=== PATIENT | female | born 1955 | race Caucasian/White ===

== ENCOUNTER 2023-07-12 08:29 | Emergency (ER) | payer MEDICARE, SELFPAY ==
[2023-07-12] VITALS (9 sets, daily range): BP systolic 144–192; BP diastolic 84–92; PULSE 77–90; RESP 17–26; TEMP 36.9–37.2; O2SAT 94–98; BMI 30.2
--- NOTE | 2023-07-12 08:45 | XR_ITS ---
The [address] [address] Patient Name: TRINY CHEEMA MRN: [id number] date: 1955 Sex: F Assigned Patient Location: ER Current Patient Location: ER Accession/Order Number: [id number] Exam Date: 07/12/2023 09:03 Report Date: 07/12/2023 09:14 At the request of: KIMBERLYN SHANKAR Procedure: XR chest 1V EXAM: XR chest 1V HISTORY: . shortness of breath . COMPARISON: None TECHNIQUE: Single view of the chest FINDINGS: Heart and vascularity unremarkable. Lungs are free of focal infiltrates. EKG leads overlie the chest. XR/XR chest 1V IMPRESSION: No acute heart or lung disease identified. Electronically authenticated by: VERNON WAGNER Date: 07/12/2023 09:14
--- NOTE | 2023-07-12 08:45 | ECG_ITS ---
The [facility] Test Date: 2023-07-12 Pat Name: TRINY CHEEMA Department: Room: - Gender: Female Associate Brand Manager: : [id number] Requested By: Dallin Jasmine Order Number: [id number] Reading MD: DARRYL RAM Measurements Intervals [place] Rate: 79 P: 33 ME: 146 QRS: 30 QRSD: 88 T: 37 QT: 370 QTc: 404 Interpretive Statements 1100 Sinus rhythm 9110 normal ECG No previous ECG available for comparison Electronically Signed On 07-14-2023 18:18:02 EDT by DARRYL RAM
--- NOTE | 2023-07-12 09:24 | ED_ITS ---
HPI - SOB/Dyspnea General Chief Complaint: Shortness of Breath/Dyspnea Stated Complaint: SHORTNESS OF BREATH/COUGH Time Seen by Provider: 07/12/23 08:45 Source: patient Mode of arrival: walk-in Limitations: no limitations History of Present Illness HPI Narrative: Patient developed cough 2 weeks ago without nasal congestion or other URI symptoms. She continues to have the cough but over the last 2 days developed s hortness of breath - worse with exertion. No fever or chills. No GI or symptoms. PMHx includes HTN. She is a former smoker. Denies COPD, asthma, emphysema, CAD, CHF Related Data Home Medications Medication Instructions Recorded Confirmed hydroxychloroquine 200 mg tablet 200 mg PO DAILY 07/12/23 07/12/23 losartan 100 mg tablet 100 mg PO DAILY 07/12/23 07/12/23 metoprolol tartrate 50 mg tablet 50 mg PO DAILY 07/12/23 07/12/23 Previous Rx's Medication Instructions Recorded albuterol sulfate 90 mcg/actuation 1 inh inhalation Q4H PRN shortness 07/12/23 aerosol inhaler (Ventolin HFA) of breath or wheezing #6.7 grams azithromycin 250 mg tablet See Rx Instructions PO .COMPLEX #6 07/12/23 tabs prednisone 20 mg tablet 40 mg PO DAILY #10 tabs 07/12/23 Allergies Allergy/AdvReac Type Severity Reaction Status Date / Time No Known Drug Allergies Allergy Verified 07/12/23 08:35 [facility] Social History Smoking status: Never smoker Exam Narrative Exam Narrative: Nurses notes and vital signs reviewed and patient is not hypoxic. afebrile General: Well-appearing and in no apparent distress. Skin: Warm, dry, no pallor noted. No rash. Head: Normocephalic, atraumatic. Eye: Pupils are equal, round and EOMI. No scleral icterus. Cardiovascular: Regular Rate and Rhythm without murmur, gallop or rub. Respiratory: No accessory muscle use or respiratory distress. Has good air exchange. Lungs with inspiratory and expiratory wheezing throughout. Back: No midline thoracic or lumbar vertebral tenderness. No CVA tenderness Musculoskeletal: normal ROM, no calf or popliteal tenderness, no lower extremity edema/swelling GI: Abdomen is soft, non-distended. Normal bowel sounds. No tenderness to palpation. No rebound, guarding, or rigidity noted. Neurological: A&O x4. No cranial nerve dysfunction observed. No truncal ataxia. Moves all extremities. Sensation intact. Psychiatric: Cooperative and interactive. Normal mood and affect. Constitutional Vital Signs, click to edit/add: Last Vital Signs Temp 98.5 F 07/12/23 08:35 Pulse 80 07/12/23 09:45 Resp 26 H 07/12/23 09:45 BP 172/84 H 07/12/23 09:45 Pulse Ox 94 L 07/12/23 09:45 O2 Del Method Room Air 07/12/23 08:35 Course Vital Signs Vital signs: Vital Signs Temperature 98.5 F 07/12/23 08:35 Pulse Rate 90 07/12/23 08:35 Respiratory Rate 20 07/12/23 08:35 Blood Pressure 192/90 H 07/12/23 08:35 Pulse Oximetry 95 07/12/23 08:35 Oxygen Delivery Method Room Air 07/12/23 08:35 Temperature 98.5 F 07/12/23 08:35 Pulse Rate 80 07/12/23 09:45 Respiratory Rate 26 H 07/12/23 09:45 Blood Pressure 172/84 H 07/12/23 09:45 Pulse Oximetry 94 L 07/12/23 09:45 Oxygen Delivery Method Room Air 07/12/23 08:35 MDM - SOB/Dyspnea MDM Narrative Medical decision making narrative: Patient was placed on cardiac nurse specialist and EKG obtained. Blood drawn and sent for evaluation. chest x-ray obtained and was negative. She was given IM Solumedrol and a duoneb treatment. Covid negative. WBC normal. Troponin and BNP normal. Sodium low at 130 - BMP otherwise unremarkable. Patient informed of results. Diagnosis discussed. Patient discharged home with prescription for zpak, albuterol MDI and short course of steroids. PCP follow up recommended. ED return if worse. Lab Data Attestation: I reviewed the patient's lab results. Labs: Lab Results 07/12/23 07/12/23 Range/Units 09:09 09:11 WBC 7.8 (4.0-11.0) 10^3/uL RBC 3.58 L (4.20-5.40) 10^6/uL Hgb 11.3 L (12.0-16.0) g/dL Hct 32.7 L (36.0-48.0) % MCV 91.3 (81.0-99.0) fL MCH 31.6 (26.7-34.0) pg MCHC 34.6 (29.9-35.2) g/dL RDW 12.0 (11.0-15.0) % Plt Count 288 (150-450) 10^3/uL MPV 9.2 L (9.5-13.5) fL Neut % (Auto) 77.4 H (43.0-75.0) % Lymph % (Auto) 10.0 L (20.5-60.0) % [place] % (Auto) 10.0 (1.7-12.0) % Eos % (Auto) 1.5 (0.9-7.0) % Baso % (Auto) 0.5 (0.2-2.0) % Neut # (Auto) 6.0 (1.4-6.5) 10^3/uL Lymph # (Auto) 0.8 L (1.2-3.8) 10^3/uL [place] # (Auto) 0.8 (0.3-0.8) 10^3/uL Eos # (Auto) 0.1 (0.0-0.7) 10^3/uL Baso # (Auto) 0.0 (0.0-0.1) 10^3/uL Abs Immat Gran (auto) 0.05 H (0.00-0.03) 10^3/uL Imm/Tot Granulo (auto) 0.6 H (0.0-0.5) % Sodium 130 L (136-145) mmol/L Potassium 4.0 (3.5-5.1) mmol/L Chloride 92 L (98-107) mmol/L Carbon Dioxide 26.8 (21.0-32.0) mmol/L Anion Gap 15.2 BUN 12.0 (7.0-18.0) mg/dL Creatinine 0.84 (0.55-1.02) mg/dL Est GFR ( Amer) >60 (>=60) Est GFR (Non-Af Amer) >60 (>=60) BUN/Creatinine Ratio 14.3 Glucose 107 H (74-106) mg/dL Calcium 9.1 (8.5-10.1) mg/dL Troponin I High Sens 23.7 (4.0-51.3) pg/mL NT-Pro-B Natriuret Pep 390.0 (<=900.0) pg/mL SARS-CoV-2 (PCR) Negative (NEGATIVE) Imaging Data Chest x-ray: Radiologist's impression: Patient Name: TRINY CHEEMA MRN: [id number] date: 1955 Sex: F Assigned Patient Location: ER Current Patient Location: ER Accession/Order Number: [id number] Exam Date: 07/12/2023 09:03 Report Date: 07/12/2023 09:14 At the request of: KIMBERLYN SHANKAR Procedure: XR chest 1V EXAM: XR chest 1V HISTORY: . shortness of breath . COMPARISON: None TECHNIQUE: Single view of the chest FINDINGS: Heart and vascularity unremarkable. Lungs are free of focal infiltrates. EKG leads overlie the chest. IMPRESSION: No acute heart or lung disease identified. Electronically authenticated by: VERNON WAGNER Date: 07/12/2023 09:14 ECG Data Interpretation: EKG interpretation: Emergency Department physician interpretation. Normal sinus rhythm at 79bpm. Normal axis, normal intervals and no ST segment elevation or depression. Normal EKG Discharge Plan Discharge Chief Complaint: Shortness of Breath/Dyspnea Clinical Impression: Bronchitis, RAD (reactive airway disease) with wheezing Patient Disposition: Home, Self-Care Time of Disposition Decision: 09:59 Prescriptions / Home Meds: New prednisone 20 mg tablet 40 mg PO DAILY Qty: 10 0RF albuterol sulfate [Ventolin HFA] 90 mcg/actuation HFA aerosol inhaler 1 inh inhalation Q4H PRN (Reason: shortness of breath or wheezing) Qty: 6.7 0RF azithromycin 250 mg tablet See Rx Instructions .ROUTE .COMPLEX Qty: 6 0RF Rx Instructions: For 250 mg dose pack: take 500 mg today (day 1), then 250 mg for 4 days (days 2-5) No Action metoprolol tartrate 50 mg tablet 50 mg PO DAILY losartan 100 mg tablet 100 mg PO DAILY hydroxychloroquine 200 mg tablet 200 mg PO DAILY Instructions: Acute Bronchitis (ED), Reactive Airways Disease (ED) Stand Alone Forms: Portal Instructions Referrals: SMITA CONWAY [Primary Care Provider] - 1 week
[2023-07-12 09:31] LABS: Basophils Percent Auto 0.5 % (0.2-2.0); Eosinophils Absolute Auto 0.1 10^3/uL (0.0-0.7); Eosinophils Percent Auto 1.5 % (0.9-7.0); Hematocrit 32.7 % (36.0-48.0); Hemoglobin 11.3 g/dL (12.0-16.0); Immature Granulocytes Abs Auto 0.05 10^3/uL (0.00-0.03); Immature Granulocytes Pct Auto 0.6 % (0.0-0.5); Lymphocytes Absolute Auto 0.8 10^3/uL (1.2-3.8); Mean Corpuscular HGB Conc 34.6 g/dL (29.9-35.2); Mean Corpuscular Hemoglobin 31.6 pg (26.7-34.0); Mean Corpuscular Volume 91.3 fL (81.0-99.0); Mean Platelet Volume 9.2 fL (9.5-13.5); Monocytes Absolute Auto 0.8 10^3/uL (0.3-0.8); Neutrophils Percent Auto 77.4 % (43.0-75.0); Platelet Count 288 10^3/uL (150-450); Red Blood Count 3.58 10^6/uL (4.20-5.40); White Blood Count 7.8 10^3/uL (4.0-11.0)
[2023-07-12 09:45] LABS: SARS-CoV-2 Ag NEGATIVE (NEGATIVE)
[2023-07-12] MEDS: METHYLPREDNISOLONE SOD SUCC PF 125 MG/2 ML VIAL IM (09:50)
[2023-07-12 09:53] LABS: Anion Gap 15.2; BUN Creatinine Ratio 14.3; Calcium 9.1 mg/dL (8.5-10.1); Carbon Dioxide 26.8 mmol/L (21.0-32.0); Chloride 92 mmol/L (98-107); Estimated GFR (African America >60 (>=60); Estimated GFR (Non-African Ame >60 (>=60); Glucose 107 mg/dL (74-106); Sodium 130 mmol/L (136-145); Troponin I High Sensitivity 23.7 pg/mL (4.0-51.3)
[2023-07-12] MEDS: IPRATROPIUM/ALBUTEROL SULFATE 3 ML AMPUL.NEB IH (09:56)
[2023-07-12 15:10] LABS: SARS-CoV-2 NAA NOT DETECTED (NOT DETECTE)
== END 2023-07-12 10:23 | disposition home or self-care (01) ==
PROVIDERS: Emergency Provider Emergency Medicine; PCP Family Medicine
DX: J45.909 Unspecified asthma, uncomplicated (principal); Z20.822 Contact with and (suspected) exposure to COVID-19; I10 Essential (primary) hypertension; Z87.891 Personal history of nicotine dependence; Z79.899 Other long term (current) drug therapy
CPT/HCPCS: 36415; 71045; 80048; 83880; 84484; 85025; 87635; 87811; 93005; 94640; 96372; 99285; J2930; U0003